=== PATIENT | female | born 1945 | race Caucasian/White ===

== ENCOUNTER 2019-04-04 17:54 | Emergency (ER) | payer MEDICARE ==
[~2019-04-04] VITALS: Ht 154.9 cm; Wt 63.5 kg
[2019-04-04] MEDS ORDERED: LORAZEPAM 0.5 MG TABLET ONE (18:37)
[2019-04-04] MEDS ORDERED: LORAZEPAM 0.5 MG TABLET PO ONE (18:45)
[2019-04-04] MEDS ORDERED: CEFTRIAXONE 1 G VIAL ONE (19:56)
[2019-04-04] MEDS ORDERED: LIDOCAINE HCL 1% 20 ML VIAL ONE (19:57)
[2019-04-04] MEDS ORDERED: CEFTRIAXONE 1 G VIAL IM ONE (20:00)
--- NOTE | 2019-04-04 20:02 | NUR ---
Patient discharged to home in stable conditon. Written and verbal after care instructions given. Patient verbalizes understanding of instructions. Pt ambulated out of ER with steady gait, no acute signs of distress, VSS, all belongings taken.
[2019-04-04 22:05] VITALS: BP 133/74
== END 2019-04-04 22:05 | disposition home or self-care (01) ==
LOC: ER 17:54
DX: S01.81XA Laceration without foreign body of other part of head, initial encounter (principal); S01.01XA Laceration without foreign body of scalp, initial encounter; F41.9 Anxiety disorder, unspecified; K21.9 Gastro-esophageal reflux disease without esophagitis; Z88.5 Allergy status to narcotic agent; W01.198A Fall on same level from slipping, tripping and stumbling with subsequent striking against other object, initial encounter; Y93.89 Activity, other specified; Y92.89 Other specified places as the place of occurrence of the external cause; Y99.8 Other external cause status
CPT/HCPCS: 12054; 70450; 96372; 99284; J0696; J3490 ×3; A4217; A4663

== ENCOUNTER 2019-04-06 08:32 | Emergency (ER) | payer MEDICARE ==
[~2019-04-06] VITALS: Ht 154.9 cm; Wt 63.5 kg
--- NOTE | 2019-04-06 08:52 | NUR ---
Patient discharged to home in stable conditon. Written and verbal after care instructions given. Patient verbalizes understanding of instructions.
== END 2019-04-06 08:53 | disposition home or self-care (01) ==
LOC: ER 08:32
DX: S01.01XD Laceration without foreign body of scalp, subsequent encounter (principal); S01.81XD Laceration without foreign body of other part of head, subsequent encounter; K21.9 Gastro-esophageal reflux disease without esophagitis; F41.9 Anxiety disorder, unspecified; Z88.5 Allergy status to narcotic agent; X58.XXXD Exposure to other specified factors, subsequent encounter
CPT/HCPCS: A4663

== ENCOUNTER 2019-04-11 11:03 | Emergency (ER) | payer MEDICARE ==
[~2019-04-11] VITALS: Ht 157.5 cm; Wt 64.4 kg
--- NOTE | 2019-04-11 11:40 | NUR ---
steristrip placed on the wound on the forehead per md order.
--- NOTE | 2019-04-11 12:02 | NUR ---
Patient discharged to home in stable conditon. Written and verbal after care instructions given. Patient verbalizes understanding of instructions.
== END 2019-04-11 12:05 | disposition home or self-care (01) ==
LOC: ER 11:03
DX: S01.81XD Laceration without foreign body of other part of head, subsequent encounter (principal); J45.909 Unspecified asthma, uncomplicated; K21.9 Gastro-esophageal reflux disease without esophagitis; F41.9 Anxiety disorder, unspecified; Z88.5 Allergy status to narcotic agent; X58.XXXD Exposure to other specified factors, subsequent encounter
CPT/HCPCS: A4663

== ENCOUNTER 2019-04-16 12:49 | Emergency (ER) | payer MEDICARE ==
[~2019-04-16] VITALS: Ht 157.5 cm; Wt 64.9 kg
[2019-04-16 13:19] VITALS: BP 142/77
--- NOTE | 2019-04-16 13:19 | NUR ---
PT WAS EVALUATED BY DR ANDERSON. PT WAS D/C'd TO HOME. D/C INSTRUCTIONS GIVEN TO THE PT.
== END 2019-04-16 13:53 | disposition home or self-care (01) ==
LOC: ER 12:49
DX: S01.01XD Laceration without foreign body of scalp, subsequent encounter (principal); J45.909 Unspecified asthma, uncomplicated; K21.9 Gastro-esophageal reflux disease without esophagitis; F41.9 Anxiety disorder, unspecified; Z88.5 Allergy status to narcotic agent; X58.XXXD Exposure to other specified factors, subsequent encounter
CPT/HCPCS: A4663